=== PATIENT | female | born 1940 | race Caucasian/White ===

== ENCOUNTER 2017-08-14 21:15 | Observation (INO) ==
[2017-08-14] MEDS ORDERED: NS 1,000 ML IV ONE (21:36)
[2017-08-14] MEDS: SALINE FLUSH 10ml SYRINGE IVF PRN (22:00)
--- NOTE | 2017-08-14 22:02 | Emergency Department Report ---
General Adult HPI - General Chief complaint: Medical Emergency Stated complaint: dehydration Time Seen by Provider: 08/14/17 21:18 Source: patient Mode of arrival: ambulatory Limitations: no limitations - History of Present Illness HPI narrative: She states that she has had watery diarrhea for the last 6 days. Has has too many stools to count. Denies any abdominal pain or bloody diarrhea. Denies any nausea but did vomit once. States that she cannot eat or drink without it coming back out. Denies any fever or chills. No sick contacts. No recent antibiotic usage. Onset (ago): day(s) (6 days ago) Severity: moderate Consistency: intermittent Relieving factors: none Exacerbating factors: none Associated symptoms: loss of appetite, malaise, weakness Treatments prior to arrival: none - Related Data Home Medications Medication Instructions Recorded Confirmed Enalapril Maleate 10 mg PO BID #0 10/05/11 08/14/17 Rosuvastatin Calcium [Crestor] 20 mg PO DAILY #0 10/05/11 08/14/17 hydroCHLOROthiazide 12.5 mg PO DAILY #0 10/05/11 08/14/17 [Hydrochlorothiazide] Glimepiride [Amaryl] 4 mg PO BID #180 08/28/13 08/14/17 Anastrozole [Anastrozole] 1 mg PO DAILY 08/14/17 08/14/17 Allergies Allergy/AdvReac Type Severity Reaction Status Date / Time fexofenadine Allergy Intermediate Rash Verified 08/15/17 00:07 Sulfa (Sulfonamide Allergy Unknown RASH Verified 08/15/17 00:07 Antibiotics) Review of Systems Constitutional: Denies: fever, chills, weakness Cardiovascular: Denies: chest pain, palpitations, dyspnea on exertion, edema Respiratory: Denies: cough, dyspnea, wheezes Gastrointestinal: Reports: vomiting (once), diarrhea. Denies: abdominal pain, nausea Integumentary: Denies: rash Neurological: Reports: weakness. Denies: headache, numbness, paresthesias [facility] Medical History Diarrhea (Acute Medical) Hypokalemia (Acute Medical) HTN Diabetes type 2 breast cancer Surgical History: Left mastectomy - Social History Smoking status: Never smoker Substance use type: does not use Alcohol intake frequency: does not drink Physical Exam - Limitations Limitations: no limitations - General General appearance: alert, in no apparent distress - Normal Exams: Neck:: Full range of motion, without adenopathy, JVD, bruits or thyromegaly Chest/Respirations:: Clear all knapp, with good airflow, and symmetry bilaterally Cardiovascular:: Regular rate and rhythm, without murmur or gallop, Pulses 2+ all extremities, capillary refill, <2 seconds all extremities Abdomen:: Bowel sounds positive, soft, non-tender, non-distended, no hepatosplenomegaly, masses or bruits noted Lymphatic:: No lymphadenopathy, or lymphedema noted Integumentary:: No rashes, hives, or bruising noted Neurological:: Patient is alert, and oriented Psychiatric:: Patient exhibits, appropriate attention, emotion and affect Course Vital Signs Temperature 97.1 F 08/14/17 21:18 Pulse Rate 107 H 08/14/17 21:18 Respiratory Rate 16 08/14/17 21:18 Blood Pressure 139/66 08/14/17 21:18 Pulse Oximetry 96 08/14/17 21:18 Temperature 97.1 F 08/14/17 21:18 Pulse Rate 88 08/14/17 23:30 Respiratory Rate 20 08/14/17 23:30 Blood Pressure 114/56 08/14/17 23:30 Pulse Oximetry 94 08/14/17 23:30 Medical Decision Making - MDM Narrative Medical decision making narrative: Did call and speak with Dr Pinto. Will go ahead and admit at this time. She has had 1 liter of NS in Er. Will give her hydration overnight in addition to IV K+. K+ today was 2.6. - Differential Diagnosis DD: dehydration, diarrhea, infectious diarrhea - Lab Data Lab results reviewed: Yes: I reviewed the patient's lab results. Result diagrams: 08/14/17 21:58 08/14/17 21:58 Lab Results 08/14/17 08/14/17 Range/Units 21:58 21:58 WBC 13.7 H (4.5-11.0) T/MM3 RBC 3.56 L (4.00-5.20) M/MM3 Hgb 11.0 L (12-16) GM/DL Hct 32.2 L (36-46) % MCV 90.4 (80-100) UM3 MCH 30.9 (26-34) UUG MCHC 34.2 (31-37) GM/DL RDW Std Deviation 43.8 (36.9-50.2) FL Plt Count 215 (130-400) T/MM3 MPV 10.0 (9.4-12.4) UM3 Immature Gran % (Auto) 0.4 (0.0-0.5) % Neut % (Auto) 81.0 H (33-66) % Lymph % (Auto) 9.5 L (23-45) % [place] % (Auto) 8.0 (0-9.0) % Eos % (Auto) 0.9 (0-4) % Baso % (Auto) 0.2 (0-2) % Neut # (Auto) 11.1 H (1.8-7.7) T/MM3 Lymph # (Auto) 1.3 (1-4.8) T/MM3 [place] # (Auto) 1.1 H (0-0.8) T/MM3 Eos # (Auto) 0.1 (0-0.5) T/MM3 Baso # (Auto) 0.0 (0-0.2) T/MM3 Abs Immat Gran (auto) 0.05 H (0.00-0.03) T/MM3 Turbidity < 20 (0-20) Sodium 140 (134-144) MEQ/L Potassium 2.6 L* (3.6-5) MEQ/L Chloride 99 (98-107) MEQ/L Carbon Dioxide 25 (22-30) MEQ/L Anion Gap 16 H (5-15) MEQ/L BUN 21.0 H (7-17) MG/DL Creatinine 1.2 (0.7-1.2) MG/DL GFR Calculation 44 BUN/Creatinine Ratio 18 (6-26) RATIO Glucose 137 H (65-110) MG/DL Calculated Osmolality 274 (261-280) MOSM/KG Calcium 7.5 L (8.4-10.2) MG/DL Total Bilirubin 0.50 (0.20-1.30) MG/DL Icterus Index < 2 (0-7) AST 16 (14-36) U/L ALT 26 (9-52) U/L Alkaline Phosphatase 78 (38-126) U/L Total Protein 7.2 (6.3-8.2) G/DL Albumin 3.9 (3.5-5.0) G/DL Globulin 3.3 (2.4-3.6) G/DL Albumin/Globulin Ratio 1.2 (1.1-2.2) RATIO Specimen Hemolysis < 15 (0-25) Disposition Clinical Impression: Hypokalemia Diarrhea Qualifiers: Diarrhea type: unspecified type Qualified Code(s): R19.7 - Diarrhea, unspecified Disposition: 02 To OBS [facility] [place] Condition: Stable Time of Disposition: 22:39 - Seen By: midlevel
--- NOTE | 2017-08-14 22:56 | History & Physical Report ---
History of Present Illness Date: 08/15/17 Chief complaint: diarrhea and weakness HPI: extremely pleasant 77-year-old white female who's been ill for almost a week. Wednesday she started having watery diarrhea. She's had multiple episodes each day and vomited once today. She's been able to keep some liquids down, but became especially weak today so she came into the emergency room. There she was treated with IV fluids feeling better but still not very hungry. He was noted to have extremely low potassium level at 2.6. She was given IV and oral replacement therapy but because of her low potassium I was consult and for admission She denies abdominal pain. She denies antibiotic use in the past month or at all recently. She denies any known sick contacts. She was feeling poorly even before any Thanksgiving dinner evaluations. She tried one dose of Imodium over 2 days ago but did not experience any relief from this. She denies any leg edema. 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[employer]) Medications Home Medications Medication Instructions Recorded Confirmed Type Enalapril Maleate 10 mg PO BID #0 10/05/11 08/14/17 History Rosuvastatin Calcium [Crestor] 20 mg PO DAILY #0 10/05/11 08/14/17 History hydroCHLOROthiazide 12.5 mg PO DAILY #0 10/05/11 08/14/17 History [Hydrochlorothiazide] Glimepiride [Amaryl] 4 mg PO BID #180 08/28/13 08/14/17 History Anastrozole [Anastrozole] 1 mg PO DAILY 08/14/17 08/14/17 History Allergies Allergy/AdvReac Type Severity Reaction Status Date / Time fexofenadine Allergy Intermediate Rash Verified 08/15/17 00:07 Sulfa (Sulfonamide Allergy Unknown RASH Verified 08/15/17 00:07 Antibiotics) Exam Vital Signs: Temperature 97.1 F 08/14/17 21:18 Pulse Rate 107 H 08/14/17 21:18 Respiratory Rate 16 08/14/17 21:18 Blood Pressure 139/66 08/14/17 21:18 Pulse Oximetry 96 08/14/17 21:18 Height/Weight/BMI: Height 1.52 m Weight 79.2 kg Comments: In general she is quite pleasant and she is alert 3 she appears mildly illShe is in no distress HEENT appears clear sclera clear Neck is supple Lungs are clear bilaterally Cardiovascular is regular without murmur gallop or rub Abdomen soft benign nontender nondistended normoactive bowel sounds Extremities without edema Neuro no focal deficits noted Results - Labs CBC & Chem 7: 08/14/17 21:58 08/15/17 06:03 Assessment and Plan (1) Gastroenteritis Current visit: Yes Status: Acute (2) Diarrhea Current visit: Yes Status: Acute (3) Hypokalemia Current visit: Yes Status: Acute (4) Diabetes mellitus type 2, controlled, with complications Current visit: Yes Status: Acute (5) Anemia Current visit: Yes Status: Acute Assessment and Plan: she likely has infectious gastroenteritis. She has a mildly elevated white blood cell count but is afebrile. Her potassium was quite low at 2.6. Her creatinine is mildly elevated at 1.2 which is high for her age and body mass index. Supportive care with IV fluids and replacing IV and oral potassium. Monitor on telemetry for any arrhythmias. Check magnesium. If she is able to eat and drink appropriately, treated with Imodium, and electrolyte replacements and would anticipate would be in the hospital less than 24 hours observation Kannan 08/15/17 1100 Have independently interviewed and examined pt. Chart reviewed. Reviewed above not an concur. CC: Diarrhea, weakness HPI: 77 y/o active female with Type II DM present to [facility] ED secondary to persistent diarrhea. Symptoms onset about 08/05/17. Started having loose, urgent stool. No nausea or ab pain. Symptoms persisted. Did try Imodium, but could not see any change. Appetite decreased-nothing sounds good. No nausea or vomiting with oral intake. Fluid intake would not increase stool output. No f/ c. Not eaten anything unusual or had sick contacts. Progressively became more weak and washed out. Presents to ED for evaluation. IVF given which did help her feel better. Potassium low at 2.6. Place in OBS for IVF and correction of potassium. PMHx: Type II DM, HTN, HTD, Hx breast CA with left mastectomy ALL/Meds: see mar Shx: -lost in 2008. Lives with daughter and son-in-law. No smoke/ ETOH. FHx: NC - patient reports no familial diseases ROS: as above. 10 point ROS discussed with patient and negative. Exam GEN: [id number] alert and appropriate HEENT: NC/AT PERRLA EOMI MMM Neck: supple, midline Lungs: clear bilaterally. No crackles, wheezes or distress CV: regular AB: soft nt/nd +BS EXT: no C/C/E MS: normal muscle mass and tone in upper/lower ext Neuro: CN II-XII intact, no focal motor deficits Psych: awake alert appropriate, thoughts linear. Communicates well. Skin: warm and dry Lab: Noted Assessment Campylobacter enteritis Diarrhea secondary to above Hypokalemia (POA) secondary to GI fluid losses Hypomagnesemia (POA) secondary to GI fluid losses Dehydration - Improved in ED with IVF boluses Type II DM HTN HDL Anemia Suspect underlying Stage III CKD based on age, DM, HTN, and lab findings. Obesity Hx Breast CA Plan OBS. Tele. Replace potassium - oral and IV Replace Magnesium through IV infusion (oral likely to increase stool output). Discussed with patient about supportive treatment Campylobacter typically self limiting. Sport drinks to help maintain hydration. [place] foods as able, increasing as able. Imodium okay if stool frequency severe, but can potentially lengthen symptoms. Monitor for bloody diarrhea, fevers/chill, signs of increasing dehydration. Monitor sugars - discussed that hyperglycemia and increase dehydration as kidney cannot reabsorb water efficiently when sugars above 180. Care to return to Dr William at time of discharge from [facility] [place]. Resuscitation Status: Full Code Hospital Course Summary Disclaimer: The visit summary below is not to be considered part of the above Progress Note. Hospital Course: Assessment Campylobacter enteritis Diarrhea secondary to above Hypokalemia (POA) secondary to GI fluid losses Hypomagnesemia (POA) secondary to GI fluid losses Dehydration - Improved in ED with IVF boluses Type II DM HTN HDL Anemia Suspect underlying Stage III CKD based on age, DM, HTN, and lab findings. Obesity Hx Breast CA Plan OBS. Tele. Replace potassium - oral and IV Replace Magnesium through IV infusion (oral likely to increase stool output). Discussed with patient about supportive treatment Campylobacter typically self limiting. Sport drinks to help maintain hydration. [place] foods as able, increasing as able. Imodium okay if stool frequency severe, but can potentially lengthen symptoms. Monitor for bloody diarrhea, fevers/chill, signs of increasing dehydration. Monitor sugars - discussed that hyperglycemia and increase dehydration as kidney cannot reabsorb water efficiently when sugars above 180. Care to return to Dr William at time of discharge from [facility] [place].
[2017-08-15 00:16] VITALS: BMI 34.6
[2017-08-15] MEDS: SALINE FLUSH 10ml SYRINGE IVF PRN (00:36)
[2017-08-15] MEDS: LIDOCAINE 1% INJ 10 MG, POTASSIUM CHLORIDE INJ 10 MEQ in NS 100 ML IV SCH ×10 (00:36→13:42)
[2017-08-15] MEDS ORDERED: ACETAMINOPHEN 325 MG TABLET PO PRN (00:46)
[2017-08-15] MEDS ORDERED: PROMETHAZINE 25 MG INJECTION IVP PRN (00:46)
[2017-08-15] MEDS ORDERED: ONDANSETRON 4 MG/2 ML INJECTION IVP PRN (00:46)
[2017-08-15] MEDS ORDERED: LOPERAMIDE 2 MG CAPSULE PO PRN (05:02)
[2017-08-15 07:45] VITALS: RESP 18
[2017-08-15] MEDS ORDERED: NS FLUSH BAG 500ml IV PRN (10:45)
[2017-08-15] MEDS: MAGNESIUM SULFATE 1gm PREMIX 1 GM/100 ML BAG IV SCH ×2 (11:11→12:20)
[2017-08-15] MEDS ORDERED: INFLUENZA VAC. INJ. ADMIN CHARGE INJ ONE (12:34)
[2017-08-15] MEDS ORDERED: INFLUENZA VAC High Dose 2017-18 (Fluzone HD*) (>=65yo) 0.5ml IM ONE (12:45)
[2017-08-15 15:04] VITALS: BP 96/55; PULSE 76; TEMP 97.6; O2SAT 95
--- NOTE | 2017-08-15 15:32 | Discharge Summary ---
Discharge Information Date of admission: 08/14/17 22:54 Anticipated date of discharge: 08/15/17 Attending Physician: Dr Brunner Primary care physician: Arlyn William, DO - Discharge Diagnosis (1) Gastroenteritis Status: Acute (2) Diarrhea Status: Acute (3) Hypokalemia Status: Acute (4) Diabetes mellitus type 2, controlled, with complications Status: Acute (5) Anemia Status: Acute Discharge diagnosis Campylobacter enteritis Associated conditions and complications Diarrhea secondary to above Hypokalemia (POA) secondary to GI fluid losses Hypomagnesemia (POA) secondary to GI fluid losses Dehydration - Improved in ED with IVF boluses Type II DM HTN HDL Anemia Suspect underlying Stage III CKD based on age, DM, HTN, and lab findings. Obesity Hx Breast CA - Laboratory Labs: Admit Lab 08/14/17 21:58 WBC 13.7 H Hgb 11.0 L Hct 32.2 L MCV 90.4 Plt Count 215 Neut % (Auto) 81.0 H Lymph % (Auto) 9.5 L [place] % (Auto) 8.0 Eos % (Auto) 0.9 Baso % (Auto) 0.2 Admit Lab 08/14/17 08/14/17 21:58 21:58 Sodium 140 Potassium 2.6 L* Chloride 99 Carbon Dioxide 25 Anion Gap 16 H BUN 21.0 H Creatinine 1.2 GFR Calculation 44 BUN/Creatinine Ratio 18 Glucose 137 H Calculated Osmolality 274 Calcium 7.5 L Magnesium 1.4 L Total Bilirubin 0.50 AST 16 ALT 26 Alkaline Phosphatase 78 Total Protein 7.2 Albumin 3.9 Globulin 3.3 Albumin/Globulin Ratio 1.2 08/15/17 06:03 History of Present Illness HPI: Extremely pleasant 77-year-old white female who's been ill for almost a week. Wednesday she started having watery diarrhea. She's had multiple episodes each day and vomited once today. She's been able to keep some liquids down, but became especially weak today so she came into the emergency room. There she was treated with IV fluids feeling better but still not very hungry. He was noted to have extremely low potassium level at 2.6. She was given IV and oral replacement therapy but because of her low potassium I was consult and for admission. She denies abdominal pain. She denies antibiotic use in the past month or at all recently. She denies any known sick contacts. She was feeling poorly even before any Thanksgiving dinner evaluations. She tried one dose of Imodium over 2 days ago but did not experience any relief from this. She denies any leg edema. For complete details of the H&P refer to that document. Objective Vital signs: Temperature 97.6 F 08/15/17 15:03 Pulse Rate 76 08/15/17 15:03 Respiratory Rate 18 08/15/17 15:03 Blood Pressure 96/55 08/15/17 15:03 Pulse Oximetry 95 08/15/17 15:03 Height/Weight/BMI: Height 1.52 m Weight 79.8 kg Body Mass Index 34.6 Hospital Course This is a general summary of the patient's hospital course. For more details refer to the complete medical record. Hospital course: Assessment Campylobacter enteritis Diarrhea secondary to above Hypokalemia (POA) secondary to GI fluid losses Hypomagnesemia (POA) secondary to GI fluid losses Dehydration - Improved in ED with IVF boluses Type II DM HTN HDL Anemia Suspect underlying Stage III CKD based on age, DM, HTN, and lab findings. Obesity with BMI 34.4 Hx Breast CA Plan OBS. Tele. Replace potassium - oral and IV Replace Magnesium through IV infusion (oral likely to increase stool output). Discussed with patient about supportive treatment Campylobacter typically self limiting. Sport drinks to help maintain hydration. [place] foods as able, increasing as able. Imodium okay if stool frequency severe, but can potentially lengthen symptoms. Monitor for bloody diarrhea, fevers/chill, signs of increasing dehydration. Monitor sugars - discussed that hyperglycemia and increase dehydration as kidney cannot reabsorb water efficiently when sugars above 180. By time of discharge, patient feeling much better. Stools still loose, but not as copious or frequent. Keeping oral in well. Will discharge to home on bland diet with plenty of fluids/sport drink. Patient may hold Amaryl, HCTZ, and Enalapril until diarrhea resolves and she is eating normally so as to minimize hypoglycemia and hypotension. Follow up with Dr William in about 1 week Recommend rechecking BMP and Mg at that time. See orders for details. Time spent with patient: discharge greater than 30 minutes DVT Prophylaxis: SCD's Discharge Plan - Discharge Disposition Discharge Date: 08/15/17 Disposition: 01 Discharged Home, Self-Care *Condition: Stable Reason For Visit (Visit label in EMR): Hypokalemia - Discharge Medications *Discharge Medications: Continue hydroCHLOROthiazide [Hydrochlorothiazide] 12.5 mg PO DAILY #0 Rosuvastatin Calcium [Crestor] 20 mg PO DAILY #0 Enalapril Maleate 10 mg PO BID #0 Glimepiride [Amaryl] 4 mg PO BID #180 Anastrozole 1 mg PO DAILY - Discharge Packet/Instructions *Diet: [place] diet, plenty of fluids (Sport drink 3-4 times a day until diarrhea resolves). Increase diet as you feel able. *Activity: As tolerated *Pain Management/Treatment: Tylenol as needed for pain. *Wound Care: n/a Additional Instructions: If constipation becomes a problem, Miralax and/or Milk of Magnesia can be very helpful. May hold hydrochlorothiazide (HCTZ) until stools normalize. May hold Amaryl until eating normaly to decrease risk for low blood sugars. May hold enalapril until diarrhea resolves to decrease risk for blood pressure becoming too low. *Expected Signs/Symptoms: Resolution of the loose stool. Bowel function returning to normal. *Notify Physician if: Temp >100.4. Bloody diarrhea. Increasing abdominal pain or nausea. Feeling dizzy or unsteady with positional changes. *During Business Hours Contact: Dr William *After Business Hours Contact: Call [facility] and have Dr William or her covering physician paged. *Pending Lab/Results: No Pending Lab - Referrals/Follow Up *Referrals/Follow Up: Arlyn William DO [Family Provider] - 1 Week (Hopsital follow up for campylobacer enteritis with subsequent dehydration and low potassium/magnesium. Recommend checking BMP and Mg at visit. ) - Patient Handouts Patient Handouts: Hypokalemia (GEN) - Dismissal Complete Discharge Instructions are:: Complete Attestation Narriative - Attestation Attestation Narrative: 08/15/17 15:36 I have independently interviewed and examined patient prior to discharge. See my H&P notation from today for details. Medically stable for discharge to home.
== END 2017-08-15 16:05 | disposition home or self-care (01) ==
LOC: MED 21:15 → ED 21:15 → MED 23:53
PROVIDERS: ADMIT Pediatrics; ATTEND Internal Medicine